=== PATIENT | female | born 1975 | race Two or more races ===

== ENCOUNTER 2021-08-21 16:00 | Outpatient (CLI) | payer OTHER, SELFPAY ==
[2021-08-23 22:07] LABS: Chlamydia By Nucleic Acid AMP Negative (Negative)
[2021-08-24 13:44] LABS: Gonococcus By Nucleic Acid AMP Negative (Negative)
[2021-08-28 17:42] LABS: HPV APTIMA, High Risk Negative (Negative)
== END 2021-08-21 23:59 | disposition home or self-care (01) ==
LOC: LABSPEC 16:03
PROVIDERS: Visit Provider Obstetrics & Gynecology
DX: Z12.4 Encounter for screening for malignant neoplasm of cervix (principal)
CPT/HCPCS: 87491; 87591; 87624; 88175; G0145

== ENCOUNTER → 2021-11-08 | Outpatient (CLI) | payer OTHER, SELFPAY ==
[2021-11-13 05:06] LABS: Chlamydia By Nucleic Acid AMP Negative (Negative)
[2021-11-13 11:28] LABS: Gonococcus By Nucleic Acid AMP Negative (Negative)
== END | disposition home or self-care (01) ==
LOC: LABSPEC 17:12
PROVIDERS: Visit Provider Obstetrics & Gynecology
DX: Z11.3 Encounter for screening for infections with a predominantly sexual mode of transmission (principal)
CPT/HCPCS: 87491; 87591